=== PATIENT | male | born 1980 | race American Indian/Alaskan Native ===

== ENCOUNTER 2017-05-17 11:54 | Emergency (ER) | payer BC ==
[2017-05-17 11:59] VITALS: BP 114/70; PULSE 76; RESP 18; TEMP 97; O2SAT 100
--- NOTE | 2017-05-17 12:17 | ED PDOC ---
Upper Extremity Pain/Injury Time Seen by Provider: 05/17/17 12:06 Chief Complaint (Nursing): Upper Extremity Problem/Injury Chief Complaint (Provider): Left Shoulder Pain History Per: Patient History/Exam Limitations: no limitations Onset/Duration Of Symptoms: Days (x1 week) Current Symptoms Are (Timing): Still Present Quality: "Pain" Additional Complaint(s): Baltazar Melchor, a 36 year old right hand dominant male, presents to the ED complaining of left shoulder pain x1 week. The patient states that within the past few days the pain has gotten much worse. He states that while at work he does do a lot of heavy lifting and repetitive motion with his left arm. No associated chest pain, SOB or JACINTO. No meds taken for pain relief. Patient states he has "clicking sensation" to anterior shoulder when he lifts his arm overhead. No associated numbness or tingling to right arm. Past Medical History Reviewed: Historical Data, Nursing Documentation, Vital Signs Vital Signs: Last Vital Signs Temp 97.0 F L 05/17/17 11:57 Pulse 76 05/17/17 11:57 Resp 18 05/17/17 11:57 BP 114/70 05/17/17 11:57 Pulse Ox 100 05/17/17 11:57 - Medical History PMH: No Chronic Diseases - Surgical History Surgical History: No Surg Hx - Family History Family History: States: No Known Family Hx - Living Arrangements Living Arrangements: With Family - Social History Current smoker - smoking cessation education provided: No Alcohol: None Drugs: Denies - Home Medications Home Medications: Ambulatory Orders Medication Instructions Recorded Ibuprofen [Motrin Tab] 800 mg PO Q8 PRN #20 tab 05/17/17 - Allergies Allergies/Adverse Reactions: Allergies Allergy/AdvReac Type Severity Reaction Status Date / Time No Known Allergies Allergy Verified 05/17/17 11:57 Review of Systems ROS Statement: Except As Marked, All Systems Reviewed And Found Negative Constitutional: Negative for: Fever Cardiovascular: Negative for: Chest Pain Respiratory: Negative for: Shortness of Breath, SOB with Exertion Gastrointestinal: Negative for: Vomiting Musculoskeletal: Positive for: Shoulder Pain (left shoulder pain x 1 week, denies acute fall or trauma) Physical Exam - Reviewed Nursing Documentation Reviewed: Yes Vital Signs Reviewed: Yes - Physical Exam Appears: Positive for: Non-toxic, No Acute Distress Skin: Positive for: Normal Color, Warm, Dry. Negative for: Rash Eye Exam: Positive for: Normal appearance Neck: Positive for: Painless ROM. Negative for: Pain On Movement Of Neck Cardiovascular/Chest: Positive for: Regular Rate, Rhythm Respiratory: Positive for: Normal Breath Sounds. Negative for: Respiratory Distress Back: Positive for: Normal Inspection. 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 Negative for: Tenderness, Deformity, Swelling Neurologic/Psych: Positive for: Alert, Oriented, Gait - ECG O2 Sat by Pulse Oximetry: 100 (RA) Pulse Ox Interpretation: Normal - Other Rad Left shoulder x-ray X-Ray: Interpreted by Me, Viewed By Me X-Ray Interpretation: no fx, no dis Medical Decision Making Medical Decision Makin Initial Impression: 36 year old male presenting with left shoulder pain Initial Plan: * X-ray left Shoulder * Pain meds declined X-ray negative for fracture/dislocation. Patient aware that x-ray does not rule out possible soft tissue internal derangement. Sling was applied and patient was referred to ortho lead applications developer for follow up. Rx motrin given for pain. Scribe Attestation Documented by Taniya Talavera acting as a scribe for Tracy Boykin PA-C. Scribe Attestation All medical record entries made by the Scribe were at my direction and personally dictated by me. I have reviewed the chart and agree that the record accurately reflects my personal performance of the history, physical exam, medical decision making, and the department course for this patient. I have also personally directed, reviewed, and agree with the discharge instructions and disposition. Procedures - Splinting Location: left arm Pre-Made Type: sling Pre-Proc Neuro Vasc Exam: normal Post-Proc Neuro Vasc Exam: normal Disposition - Clinical Impression Clinical Impression: Shoulder pain - Patient ED Disposition Is Patient to be Admitted: No Counseled Patient/Family Regarding: Studies Performed, Diagnosis, Need For Followup, Rx Given - Disposition Referrals: Parmjit Vasquez III, MD [Staff Provider] - Disposition: Routine/Home Disposition Time: 13:00 Condition: STABLE Additional Instructions: Take rx meds as directed as needed for pain. Follow up with orthopedist in 1-2 days. Prescriptions: Ibuprofen [Motrin Tab] 800 mg PO Q8 PRN #20 tab PRN Reason: Pain, Moderate (4-7) Instructions: Shoulder Pain (ED) Forms: [employer] ([place]), [facility] ED School/Work Excuse
--- NOTE | 2017-05-17 17:44 | RAD ---
PROCEDURE: Radiographs of the Left Shoulder HISTORY: pain for 1 week, clicking sounds COMPARISON: None available. FINDINGS: BONES: No acute displaced fracture. The distal clavicle and underlying ribs appear intact. JOINTS: No acute dislocation. SOFT TISSUES: Soft tissues appear unremarkable. No evidence of radiopaque foreign body. IMPRESSION: No acute displaced fracture or dislocation evident. If symptoms persist or if there is continued clinical concern, x-ray follow-up in 7-10 days should be considered.
== END 2017-05-17 13:07 | disposition home or self-care (01) ==
LOC: H.ER 11:54
DX: M25.512 Pain in left shoulder (principal)

== ENCOUNTER 2017-06-08 14:23 | Emergency (ER) | payer OTHER, BC ==
[2017-06-08 14:31] VITALS: BP 115/61; PULSE 87; RESP 16; TEMP 97; O2SAT 100
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
== END 2017-06-08 16:27 | disposition home or self-care (01) ==
LOC: H.ER 14:23
DX: M54.5 Low back pain (principal); V89.2XXA Person injured in unspecified motor-vehicle accident, traffic, initial encounter; Y93.9 Activity, unspecified; Y92.410 Unspecified street and highway as the place of occurrence of the external cause